=== PATIENT | male | born 1990 | race Two or more races ===

== ENCOUNTER 2020-07-15 20:03 | Emergency (ER) | payer OTHER ==
[~2020-07-15] VITALS: Ht 175.3 cm; Wt 86.4 kg
[2020-07-15] MEDS ORDERED: HYDR-2761 PO (20:42)
[2020-07-15] MEDS ORDERED: CYCL10TA2 PO (20:42)
[2020-07-15] MEDS ORDERED: IBUP-1007 PO (20:42)
--- NOTE | 2020-07-15 20:42 | PHYS DOC ---
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 He states today he was bent over inside of an engine looking at spark plugs and then jumped out of the vehicle. He states after that he began having bilateral lower back pain that is throbbing. He states it stays in there is no radiation. He denies any nausea, vomiting, abdominal pain, urinary symptoms, blood in his urine, fever, chest pain, shortness of breath, headache or dizziness. He denies any numbness or tingling or focal weaknesses. He denies any past medical history. He denies loss of bowel or bladder. He states that his boss told him to go to a chiropractor so he did that on his lunch break and that did not help. He states he has taken ibuprofen and Tylenol today without help. Patient rates his pain at a 9 out of 10. Patient states the pain is worse when he is up and moving or going from sitting to standing. He states the pain is worse with movement. Review of Systems: Review of Systems: Constitutional: Denies fever or chills. [] Eyes: Denies change in visual acuity. [] HENT: Denies nasal congestion or sore throat. [] Respiratory: Denies cough or shortness of breath. [] Cardiovascular: Denies chest pain or edema. [] GI: Denies abdominal pain, nausea, vomiting, bloody stools or diarrhea. [] : Denies dysuria. [] Musculoskeletal: + Bilateral lower back pain or denies joint pain. [] Integument: Denies rash. [] Neurologic: Denies headache, focal weakness or sensory changes. [] Endocrine: Denies polyuria or polydipsia. [] Lymphatic: Denies swollen glands. [] Psychiatric: Denies depression or anxiety. [] Heart Score: C/O Chest Pain: No Risk Factors: Risk Factors: DM, Current or recent (<one month) smoker, HTN, HLP, family history of CAD, obesity. Risk Scores: Score 0 - 3: 2.5% MACE over next 6 weeks - Discharge Home Score 4 - 6: 20.3% MACE over next 6 weeks - Admit for Clinical Observation Score 7 - 10: 72.7% MACE over next 6 weeks - Early Invasive Strategies Current Medications: Current Medications Medications (Trade) Dose Ordered Sig/Hubert Start Time Stop Time Status Last Admin Dose Admin Acetaminophen/ Hydrocodone Bitart (Lortab 5/325) 1 tab 1X ONCE 07/15/20 20:45 07/15/20 20:46 UNV Orphenadrine Citrate (Norflex) 60 mg 1X ONCE 07/15/20 20:45 07/15/20 20:46 UNV Allergies: Allergies: Allergies Coded Allergies Type Severity Reaction Last Updated Verified No Known Drug Allergies 07/15/20 No Physical Exam: PE: Constitutional: Well developed, well nourished, no acute distress, non-toxic appearance. [] HENT: Normocephalic, atraumatic, bilateral external ears normal, oropharynx moist, no oral exudates, nose normal. [] Eyes: PERRLA, EOMI, conjunctiva normal, no discharge. [] Neck: Normal range of motion, no tenderness, supple, no stridor. [] Cardiovascular:Heart rate regular rhythm, no murmur [] Lungs & Thorax: Bilateral breath sounds clear to auscultation [] Abdomen: Bowel sounds normal, soft, no tenderness, no masses, no pulsatile masses. [] Skin: Warm, dry, no erythema, no rash. [] Back: No tenderness, no CVA tenderness. [] Extremities: No tenderness, no cyanosis, no clubbing, ROM intact, no edema. [] Neurologic: Alert and oriented X 3, normal motor function, normal sensory function, no focal deficits noted. [] Psychologic: Affect normal, judgement normal, mood normal. Normal physical exam [] Current Patient Data: Vital Signs: Vital Signs Date Time Temp Pulse Resp B/P (MAP) Pulse Ox O2 Delivery O2 Flow Rate FiO2 07/15/20 20:11 86 20 131/74 (93) 95 Room Air EKG: EKG: [] Radiology/Procedures: Radiology/Procedures: [] Course & Med Decision Making: Course & Med Decision Making Pertinent Labs and Imaging studies reviewed. (See chart for details) See HPI. Alert and oriented x4. Speaks in full clear sentences. Skin pink warm and dry. Ambulatory with a steady gait. No saddle paresthesia. No CVA tenderness. Abdomen is soft and nontender. No focal weaknesses. Sensations intact. No focal bony spinal tenderness or deformity felt or seen. No bruising to the back. Patient is given Norflex and [place] in the ED. [] Radhaon Disclaimer: Janis Disclaimer: This electronic medical record was generated, in whole or in part, using a voice recognition dictation system. Departure Departure Impression: Primary Impression: Back pain Qualified Codes: M54.5 - Low back pain Disposition: 01 DC HOME SELF CARE/HOMELESS Condition: STABLE Patient Instructions: Back Injury Prevention, Low Back Strain with Rehab- Sports[facility] Additional Instructions: Follow-up with a primary care provider if needed. Rest, use ice and heating pad. Take medication as prescribed and with food. These medications will make you sleepy do not drive or work or drink alcohol or do other drugs on top of them. Return for focal weakness or numbness and tingling. Scripts Ibuprofen (IBUPROFEN) 600 Mg Tablet 600 MG PO PRN Q6HRS PRN for INFLAMMATION, #26 TAB Prov: BRENDA SANTACRUZ APRN 07/15/20 Hydrocodone Bit/Acetaminophen (HYDROCODONE-APAP 5-325 ) 1 Tab Tablet 1 TAB PO PRN Q6HRS PRN for PAIN, #10 TAB 0 Refills Prov: BRENDA SANTACRUZ APRN 07/15/20 Cyclobenzaprine Hcl (CYCLOBENZAPRINE HCL) 10 Mg Tablet 1 TAB PO TID, #21 TAB Prov: BRENDA SANTACRUZ APRN 07/15/20 BRENDA SANTACRUZ APRN Jul 15, 2020 20:42
[2020-07-15 20:43] LABS: BILIRUBIN,URINE NEGATIVE (NEG); CLARITY,URINE CLEAR; COLOR,URINE YELLOW; NITRITE,URINE NEGATIVE (NEG); PROTEIN,URINE NEGATIVE (NEG-TRACE); UROBILINOGEN,URINE 0.2 mg/dL (0.2 mg/dL)
[2020-07-15 20:48] LABS: BACTERIA,URINE 0 /HPF (0-FEW); RBC,URINE 0 /HPF (0-2); WBC,URINE 0 /HPF (0-4)
[2020-07-15] MEDS ORDERED: ORPHENADRINE CITRATE 60 MG/2 ML VIAL. IM ONE (21:00)
[2020-07-15] MEDS ORDERED: HYDROcodone/APAP 5/325MG 1 TAB TABLET PO ONE (21:00)
[2020-07-15 21:31] VITALS: BP 112/54
== END 2020-07-15 21:32 | disposition home or self-care (01) ==
LOC: ER 20:03
DX: M54.5 Low back pain (principal); X50.9XXA Other and unspecified overexertion or strenuous movements or postures, initial encounter; Y93.39 Activity, other involving climbing, rappelling and jumping off; Y92.9 Unspecified place or not applicable; Y99.8 Other external cause status
CPT/HCPCS: 81001; 96372; 99283; J2360

== ENCOUNTER 2020-07-18 15:56 | Emergency (ER) | payer MEDICAID, OTHER ==
[~2020-07-18] VITALS: Ht 175.3 cm; Wt 90.0 kg
[~2020-07-18 15:56] MED LIST: CYCL10TA2 PO; HYDR-2761 PO; IBUP-1007 PO
[2020-07-18] MEDS ORDERED: DEXAMETHASONE SOD PHOS 20 MG/5 ML VIAL. IV ONE (16:30)
[2020-07-18] MEDS ORDERED: ACETAMINOPHEN 500 MG TABLET PO ONE (16:30)
[2020-07-18] MEDS ORDERED: MORPHINE SULFATE 4 MG/ML VIAL. IV/SQ PRN (16:30)
[2020-07-18] MEDS ORDERED: IV NORMAL SALINE 1000ML BAG 1,000 ML IV SCH (16:30)
[2020-07-18 16:48] LABS: BASO % 0 % (0-3); EOS % 0 % (0-3); HEMATOCRIT 38.2 % (39.0-53.0); HEMOGLOBIN 13.3 g/dL (13.0-17.5); LYMPH # 0.8 x10^3/uL (1.0-4.8); LYMPH % 7 % (24-48); MEAN CORPUSCULAR HEMOGLOBIN 30 pg (25-35); MEAN CORPUSCULAR HGB CONC 35 g/dL (31-37); MEAN CORPUSCULAR VOLUME 86 fL (79-100); MONO # 1.2 x10^3/uL (0.0-1.1); MONO % 12 % (0-9); NEUT # 8.6 x10^3/uL (1.8-7.7); NEUT % 81 % (31-73); PLATELET COUNT 222 x10^3/uL (140-400); RED BLOOD COUNT 4.43 x10^6/uL (4.30-5.70); RED CELL DISTRIBUTION WIDTH 12.9 % (11.5-14.5); WHITE BLOOD COUNT 10.6 x10^3/uL (4.0-11.0)
[2020-07-18 16:57] LABS: CALCIUM 8.4 mg/dL (8.5-10.1); GFR 87.7; POTASSIUM 3.2 mmol/L (3.5-5.1)
[2020-07-18 17:03] LABS: ALBUMIN 3.2 g/dL (3.4-5.0); ALBUMIN/GLOBULIN RATIO 0.7 (1.0-1.7); MAGNESIUM 1.9 mg/dL (1.8-2.4); TOTAL BILIRUBIN 0.7 mg/dL (0.2-1.0); TOTAL PROTEIN 7.5 g/dL (6.4-8.2)
--- NOTE | 2020-07-18 17:04 | PHYS DOC ---
Past Medical History Past Medical History: No Pertinent History (NELONDON Fong WOOD FUEL PELLETIZER) Past Surgical History: No Surgical History (ARIADNALONDON THOMPSON WOOD FUEL PELLETIZER) Smoking Status: Never Smoker Alcohol Use: None (SHEYLALONDON Lenore WOOD FUEL PELLETIZER) General Adult EDM: Chief Complaint: FEVER HPI: HPI: Patient is a 30 year old male with no significant medical history who presents to the ED today complaining of moderate generalized back pain that began 4 days ago, he states he came to the ED and was evaluated for back pain and sent home with pain medicines including hydrocodone, he states today he developed s hortness of breath, fevers, nausea with vomiting, body aches, symptoms began today. Denies any coughing or congestion. (NEAjitLONDON Lenore WO[employer] FUEL PELLETIZER) Review of Systems: Review of Systems: Constitutional: Reports body aches, fever Eyes: Denies change in visual acuity. [] HENT: Denies nasal congestion or sore throat. [] Respiratory: Reports shortness of breath, denies cough Cardiovascular: Denies chest pain or edema. [] GI: Reports nausea and vomiting. Denies abdominal pain, bloody stools or diarrhea. [] : Denies dysuria. [] Musculoskeletal: Reports back pain Integument: Denies rash. [] Neurologic: Denies headache, focal weakness or sensory changes. [] Psychiatric: Denies depression or anxiety. [] (NELONDON Fong WOOD FUEL PELLETIZER) Heart Score: C/O Chest Pain: N/A Risk Factors: Risk Factors: DM, Current or recent (<one month) smoker, HTN, HLP, family history of CAD, obesity. Risk Scores: Score 0 - 3: 2.5% MACE over next 6 weeks - Discharge Home Score 4 - 6: 20.3% MACE over next 6 weeks - Admit for Clinical Observation Score 7 - 10: 72.7% MACE over next 6 weeks - Early Invasive Strategies (LONDON CARRION [employer]UEL PELLETIZER) Current Medications: Current Medications Medications (Trade) Dose Ordered Sig/Hubert Start Time Stop Time Status Last Admin Dose Admin Acetaminophen (Tylenol) 1,000 mg 1X ONCE 07/18/20 16:30 07/18/20 16:49 DC Dexamethasone Sodium Phosphate (Decadron) 10 mg 1X ONCE 07/18/20 16:30 07/18/20 16:49 DC Morphine Sulfate (Morphine Sulfate) 4 mg PRN Q15MIN PRN 07/18/20 16:30 07/19/20 16:29 Sodium Chloride 1,000 ml @ 2,130 mls/hr Q29M 07/18/20 16:30 07/18/20 17:30 (LONDON CARRION [employer]ELLE[employer]) Allergies: Allergies: Allergies Coded Allergies Type Severity Reaction Last Updated Verified No Known Drug Allergies 07/15/20 No (LONDON CARRION WO[employer] FU[employer] PELLETIZER) Physical Exam: PE: Constitutional: Well developed, well nourished, no acute distress, non-toxic appearance. [] HENT: Normocephalic, atraumatic, bilateral external ears normal, oropharynx moist, no oral exudates, nose normal. [] Eyes: PERRLA, EOMI, conjunctiva normal, no discharge. [] Neck: Normal range of motion, no tenderness, supple, no stridor. [] Cardiovascular:Heart rate regular rhythm, no murmur [] Lungs & Thorax: Bilateral breath sounds clear to auscultation [] Abdomen: Bowel sounds normal, soft, no tenderness, no masses, no pulsatile masses. [] Skin: Warm, dry, no erythema, no rash. [] Back: No tenderness, no CVA tenderness. [] Extremities: No tenderness, no cyanosis, no clubbing, ROM intact, no edema. [] Neurologic: Alert and oriented X 3, normal motor function, normal sensory function, no focal deficits noted. [] Psychologic: Affect normal, judgement normal, mood normal. [] (LONDON CARRION WO[employer] PELLETIZER) Current Patient Data: Labs: Laboratory Tests Test 07/18/20 16:34 White Blood Count 10.6 x10^3/uL (4.0-11.0) Red Blood Count 4.43 x10^6/uL (4.30-5.70) Hemoglobin 13.3 g/dL (13.0-17.5) Hematocrit 38.2 % (39.0-53.0) L Mean Corpuscular Volume 86 fL (79-100) Mean Corpuscular Hemoglobin 30 pg (25-35) Mean Corpuscular Hemoglobin Concent 35 g/dL (31-37) Red Cell Distribution Width 12.9 % (11.5-14.5) Platelet Count 222 x10^3/uL (140-400) Neutrophils (%) (Auto) 81 % (31-73) H Lymphocytes (%) (Auto) 7 % (24-48) L Monocytes (%) (Auto) 12 % (0-9) H Eosinophils (%) (Auto) 0 % (0-3) Basophils (%) (Auto) 0 % (0-3) Neutrophils # (Auto) 8.6 x10^3/uL (1.8-7.7) H Lymphocytes # (Auto) 0.8 x10^3/uL (1.0-4.8) L Monocytes # (Auto) 1.2 x10^3/uL (0.0-1.1) H Eosinophils # (Auto) 0.0 x10^3/uL (0.0-0.7) Basophils # (Auto) 0.0 x10^3/uL (0.0-0.2) Sodium Level 134 mmol/L (136-145) L Potassium Level 3.2 mmol/L (3.5-5.1) L Chloride Level 98 mmol/L (98-107) Carbon Dioxide Level 26 mmol/L (21-32) Anion Gap 10 (6-14) Blood Urea Nitrogen 14 mg/dL (8-26) Creatinine 1.0 mg/dL (0.7-1.3) Estimated GFR (Cockcroft-Gault) 87.7 BUN/Creatinine Ratio 14 (6-20) Glucose Level 140 mg/dL (70-99) H Calcium Level 8.4 mg/dL (8.5-10.1) L Magnesium Level Pending Total Bilirubin Pending Aspartate Amino Transferase (AST) Pending Alanine Aminotransferase (ALT) Pending Alkaline Phosphatase Pending Total Protein Pending Albumin Pending Albumin/Globulin Ratio Pending Laboratory Tests 07/18/20 16:34 Laboratory Tests 07/18/20 16:34 Vital Signs: Vital Signs Date Time Temp Pulse Resp B/P (MAP) Pulse Ox O2 Delivery O2 Flow Rate FiO2 07/18/20 16:02 102.8 107 16 135/68 (90) 95 Room Air 102.8 (LONDON CARRION APRN) EKG: EK interpreted by Dr. Lechuga sinus rhythm heart rate 94 no STEMI [] (LONDON CARRION APRN) Radiology/Procedures: Radiology/Procedures: []PROCEDURE: PORTABLE CHEST 1V XR CHEST 1V 07/18/2020 4:52 PM INDICATION: Fever COMPARISON: None available TECHNIQUE: Portable frontal view of the chest is provided. FINDINGS: The cardiomediastinal silhouette is within normal limits. Lungs are clear. There are no significant pleural effusions. There is no pulmonary vascular congestion. No pneumothorax. No suspicious osseous abnormality. IMPRESSION: There is no acute cardiopulmonary process. Electronically signed by: Rylie Sarah MD (07/18/2020 5:02 PM) [facility] DICTATED and SIGNED BY: RYLIE SARAH MD DATE: 07/18/20 [id number] 0 (LONDON CARRION APRN) Course & Med Decision Making: Course & Med Decision Making Pertinent Labs and Imaging studies reviewed. (See chart for details) This is a 30-year-old male patient presenting to the ED today complaining of back pain generalized in nature, symptoms began 4 days ago, patient is also complaining of a fever, nausea, vomiting, body aches, shortness of breath, symptoms began today. Patient arrives in the ED with a temperature of 102.8, heart rate 107, blood pressure 135/68, O2 sats 95% on room air. Covid test was obtained sepsis work-up was started EKG is negative, chest x-ray is negative. CBC with no acute findings, CMP with potassium of 3.2, oral potassium oral potassium replacement done. Lactic is normal, pro calcitonin 0.40 Patient was given Decadron and IV fluids in the ED. Given Tylenol for his fever. Discharged to home with steroids, instructed to quarantine himself, rest, push fluids, maintain good hand hygiene. He will be called with the results for his Covid test when available (LONDON CARRION APRN) Dragon Disclaimer: Dragon Disclaimer: This electronic medical record was generated, in whole or in part, using a voice recognition dictation system. (LONDON CARRION APRN) Departure Departure Impression: Primary Impression: Fever Qualified Codes: R50.9 - Fever, unspecified Additional Impressions: Person under investigation for COVID-19 Myalgia Nausea & vomiting Qualified Codes: R11.2 - Nausea with vomiting, unspecified Disposition: 09 ADMITTED INPT THIS HOSP Condition: STABLE Referrals: NO PCP (PCP) Follow-up with your doctor in 1 to 2 weeks Patient Instructions: Fever, Adult, Nausea and Vomiting, Viral Exanthems, Adult Additional Instructions: You were evaluated in the emergency room with Covid symptoms. You were tested f or covid19, we will be call you in the course of this week when results are available, in the meantime quarantine yourself, rest, push fluids. Take Tylenol/Motrin for pain or fever. Maintain good hand hygiene, wear your mask around other people. Follow-up with your doctor in 1 to 2 weeks. Scripts Ondansetron Hcl (ZOFRAN) 4 Mg Tablet 1 TAB PO Q6HRS, #20 TAB Prov: LONDON CARRION APRN 07/18/20 Dexamethasone (Decadron) 6 Mg Tablet 1 TAB PO ONCE, #5 TAB 0 Refills Prov: LONDON CARRION APRN 07/18/20 Attending Signature Attending Signature I have reviewed the PA/BRASS SORTER's note and plan of care. I was available for consultat ion as needed during the patient's visit in the emergency department. I agree with the clinical impression, plan, and disposition. (NEGIN LECHUGA DO) LONDON CARRION APRN Jul 18, 2020 17:04 NEGIN LECHUGA DO Jul 19, 2020 16:12
--- NOTE | 2020-07-18 17:04 | RAD ---
XR CHEST 1V 07/18/2020 4:52 PM INDICATION: Fever COMPARISON: None available TECHNIQUE: Portable frontal view of the chest is provided. FINDINGS: The cardiomediastinal silhouette is within normal limits. Lungs are clear. There are no significant pleural effusions. There is no pulmonary vascular congestion. No pneumothora x. No suspicious osseous abnormality. IMPRESSION: There is no acute cardiopulmonary process. Electronically signed by: Svetlana Bardales MD (07/18/2020 5:02 PM) [facility]
[2020-07-18] MEDS ORDERED: DEXA6TAB6 PO (17:32)
[2020-07-18] MEDS ORDERED: ONDA4TAB7 PO (17:36)
[2020-07-18 18:35] VITALS: BP 113/69
[2020-07-18] MEDS ORDERED: POTASSIUM CHLORIDE 20 MEQ TABLET.ER. PO ONE (19:15)
--- NOTE | 2020-07-18 19:38 | EKG ---
[facility] [address] [place] [address] Test Date: 2020-07-18 Test Time: 16:43:51 Pat Name: KELBY RIVERO Department: Room: Gender: M Manager [employer]: : 1990 Requested By: LONDON CARRION Order Number: [id number] Reading MD: Measurements Intervals [place] Rate: 94 P: 41 AR: 166 QRS: 43 QRSD: 72 T: 25 QT: 314 QTc: 397 Interpretive Statements SINUS RHYTHM NORMAL ECG RI6.02 No previous ECG available for comparison
--- NOTE | 2020-07-20 09:54 | NUR ---
IP: Informed pt of positive COVID test. Pt states had COVID about a month ago. Informed him no need to quarantine and he may continue to test positive for a few months. Pt verbalized understanding.
== END 2020-07-18 19:11 | disposition home or self-care (01) ==
LOC: ER 15:56
DX: U07.1 COVID-19 (principal); R50.9 Fever, unspecified; R11.2 Nausea with vomiting, unspecified; R06.02 Shortness of breath; M54.5 Low back pain
CPT/HCPCS: 36415; 71045; 80053; 82553; 83605; 83735; 84145; 84484; 85025; 87040; 87205; 93005; 96361; 96374; 96375; 99285; C9803; J1100; J2270; J7030; U0003; U0005